=== PATIENT | female | born 1970 | race African-American/Black ===

== ENCOUNTER 2017-05-18 19:54 | Emergency (ER) | payer SELFPAY ==
[2015-11-09 22:58] VITALS: BP 135/83
[~2017-05-18] VITALS: Ht 157.5 cm; Wt 88.5 kg
--- NOTE | 2017-05-18 21:22 | PHYS DOC ---
Past Medical History Past Medical History: No Pertinent History, Other Additional Past Medical Histor: tubal 1990 Past Surgical History: Other Additional Past Surgical Histo: Hernia Alcohol Use: None Drug Use: None Adult General Chief Complaint Chief Complaint: SORE THROAT [facility] HPI Patient is a 46 year old female with no significant medical history who presents with a sore throat, bilateral ear pain and a cough that began 4 days ago. Patient is also complaining of right eye redness and crusting that she noted 3 days ago when she woke up. Patient denies any vision loss. Patient denies any fever. Review of Systems Review of Systems Constitutional: see HPI Eyes: right eye redness HENT: eye pain bilaterally and sore throat [] Respiratory cough Cardiovascular: No additional information not addressed in HPI [] GI: Denies abdominal pain, nausea, vomiting, bloody stools or diarrhea [] : Denies dysuria or hematuria [] Musculoskeletal: Denies back pain or joint pain [] Integument: Denies rash or skin lesions [] Neurologic: Denies headache, focal weakness or sensory changes [] Endocrine: Denies polyuria or polydipsia [] Allergies Allergies Allergies Coded Allergies Type Severity Reaction Last Updated Verified No Known Drug Allergies 12/25/14 No Physical Exam Physical Exam Constitutional: Well developed, well nourished, no acute distress, non-toxic appearance. [] HENT: Normocephalic, atraumatic, bilateral external ears normal, oropharynx moist, no oral exudates, nose normal. [] Bilateral TM are mildly injected. Eyes: PERRLA, EOMI, mild injection to the right conjunctiva with trace crusty material Neck: Normal range of motion, no tenderness, supple, no stridor. [] Cardiovascular:Heart rate regular rhythm, no murmur [] Lungs & Thorax: Bilateral breath sounds clear to auscultation [] Abdomen: Bowel sounds normal, soft, no tenderness, no masses, no pulsatile masses. [] Skin: Warm, dry, no erythema, no rash. [] Back: No tenderness, no CVA tenderness. [] Extremities: No tenderness, no cyanosis, no clubbing, ROM intact, no edema. [] Neurologic: Alert and oriented X 3, normal motor function, normal sensory function, no focal deficits noted. [] Psychologic: Affect normal, judgement normal, mood normal. [] Current Patient Data Vital Signs Vital Signs Date Time Temp Pulse Resp B/P (MAP) Pulse Ox O2 Delivery O2 Flow Rate FiO2 05/18/17 20:08 98.8 94 18 97 Room Air 98.8 EKG EKG [] Radiology/Procedures Radiology/Procedures [] Course & Med Decision Making Course & Med Decision Making Pertinent Labs and Imaging studies reviewed. (See chart for details) Patient has otitis media bilaterally, cough, pharyngitis, and right eye bacterial conjunctivitis. Discharged with amoxicillin for 10 days and tobramycin. Tylenol Motrin for pain or fever. Saltwater gargles recommended. Follow-up with PCP in 1-2 weeks. Dragon Disclaimer Dragon Disclaimer This electronic medical record was generated, in whole or in part, using a voice recognition dictation system. Departure Departure Impression: Primary Impression: Pharyngitis, acute Additional Impressions: Otitis media Cough Bacterial conjunctivitis of right eye Disposition: HOME, SELF-CARE Condition: STABLE Referrals: MAGALY CABRERA (PCP) Follow-up with your doctor in 1-2 weeks Patient Instructions: Bacterial Conjunctivitis, [id number], Cough, Adult, [id number], Otitis Media, Adult, Viral and Bacterial Pharyngitis Additional Instructions: You were seen for otitis media, pharyngitis, cough, and bacterial conjunctivitis to the right eye. Please complete your oral antibiotics. Use the prescribed eye drops as ordered. Keep your hands clean. Follow-up with your doctor in the next 7 days. Do not wear contact lenses until the infection has cleared up. Scripts Benzonatate (TESSALON PERLE) 100 Mg Capsule 1 CAP PO TID, #30 CAP Prov: JAHAIRA BELL APRN 05/18/17 Tramadol Hcl (ULTRAM) 50 Mg Tablet 1 TAB PO Q6HRS, #30 TAB Prov: JAHAIRA BELL APRN 05/18/17 Tobramycin (TOBRAMYCIN) 5 Ml Drops 1 DROP OD Q4HRS W/A, #5 ML Prov: JAHAIRA BELL APRN 05/18/17 Amoxicillin (AMOXICILLIN) 875 Mg Tablet 1 TAB PO BID, #20 TAB Prov: JAHAIRA BELL APRN 05/18/17 Problem Qualifiers Primary Impression: Pharyngitis, acute Pharyngitis/tonsillitis etiology: unspecified etiology Qualified Codes: J02.9 - Acute pharyngitis, unspecified Additional Impressions: Otitis media Otitis media type: other nonsuppurative Chronicity: acute Laterality: bilateral Recurrence: not specified as recurrent Qualified Codes: H65.193 - Other acute nonsuppurative otitis media, bilateral HENRYANITAJAHAIRA [employer]OR May 18, 2017 21:22
[2017-05-18] MEDS ORDERED: TOBR5DRO6 OD (21:27)
[2017-05-18] MEDS ORDERED: TRAM-48 PO (21:27)
[2017-05-18] MEDS ORDERED: AMOX875T PO (21:27)
[2017-05-18] MEDS ORDERED: BENZ100C PO (21:27)
[2017-05-19 08:35] LABS: NEGATIVE OBC STREP NEG; POSITIVE OBC STREP POS
== END 2017-05-18 21:31 | disposition home or self-care (01) ==
LOC: ER 19:54
DX: J02.9 Acute pharyngitis, unspecified (principal); H65.193 Other acute nonsuppurative otitis media, bilateral; H10.89 Other conjunctivitis
CPT/HCPCS: 87070; 87880; 99283

== ENCOUNTER 2017-11-01 16:25 | Emergency (ER) | payer SELFPAY ==
[2017-11-01 16:48] LABS: ADD MAN DIFF? NO
[2017-11-01 16:49] LABS: BASO # 0.1 x10^3/uL (0.0-0.2); BASO % 1 % (0-3); EOS # 0.1 x10^3/uL (0.0-0.7); EOS % 1 % (0-3); HEMATOCRIT 37.2 % (36.0-47.0); HEMOGLOBIN 12.1 g/dL (12.0-15.5); LYMPH % 29 % (24-48); MEAN CORPUSCULAR HEMOGLOBIN 27 pg (25-35); MEAN CORPUSCULAR HGB CONC 33 g/dL (31-37); MEAN CORPUSCULAR VOLUME 83 fL (79-100); MONO # 0.4 x10^3/uL (0.0-1.1); MONO % 4 % (0-9); NEUT # 6.8 x10^3uL (1.8-7.7); NEUT % 66 % (31-73); PLATELET COUNT 436 x10^3/uL (140-400); RED BLOOD COUNT 4.49 x10^6/uL (3.50-5.40); RED CELL DISTRIBUTION WIDTH 14.7 % (11.5-14.5); WHITE BLOOD COUNT 10.3 x10^3/uL (4.0-11.0)
[2017-11-01 17:07] LABS: ANION GAP 12 (6-14); BLOOD UREA NITROGEN 10 mg/dL (7-20); CALCIUM 8.8 mg/dL (8.5-10.1); CARBON DIOXIDE 26 mmol/L (21-32); CHLORIDE 103 mmol/L (98-107); CREATININE 0.8 mg/dL (0.6-1.0); GFR 92.2; GLUCOSE 92 mg/dL (70-99); POTASSIUM 3.4 mmol/L (3.5-5.1); SODIUM 141 mmol/L (136-145)
[2017-11-01 17:27] LABS: TROPONINI < 0.017 ng/mL (0.000-0.055)
== END 2017-11-01 20:05 | disposition home or self-care (01) ==
LOC: ER 16:25
DX: R60.1 Generalized edema (principal); R07.89 Other chest pain
CPT/HCPCS: 36415; 80048; 84484; 85025; 93005; 93971; 99285-25

== ENCOUNTER 2020-05-12 12:41 | Emergency (ER) | payer SELFPAY ==
[~2020-05-12] VITALS: Ht 160 cm; Wt 86.3 kg
[~2020-05-12 12:41] MED LIST: AMOX875T PO; BENZ100C PO; NAPR-695 PO; TOBR5DRO6 OD; TRAM-48 PO
[2020-05-12 13:00] VITALS: BP 159/107
--- NOTE | 2020-05-12 14:26 | PHYS DOC ---
Past Medical History Past Medical History: No Pertinent History Additional Past Medical Histor: tubal 1990 (TETE CABALLERO APRN) Past Surgical History: Other Additional Past Surgical Histo: Hernia (TETE CABALLERO APRN) Smoking Status: Current Every Day Smoker Additional Information: 0.25/ppd Alcohol Use: None Drug Use: None (TETE CABALLERO APRN) General Adult EDM: Chief Complaint: UPPER EXTREMITY PAIN HPI: HPI: Patient is a 49 year old female who presents with complaints of left shoulder area muscle stiffness that started approximately 1 week ago. Patient states she believes it may have been related to having her hair rakan put in and sleeping funny that night. Patient denies any acute injury or straining her neck or arm related to this current complaint. Patient rates her pain a 10 out of 10 when it is at its worse. Patient states when she moves left her arm doing normal things throughout the day the pain becomes worse and feels as if it is burning from the side of her left neck through her left shoulder and down the back of her left arm. Patient states she gets relief with taken Vicodin and Naprosyn at home. Patient states these medications were old medications left over from previous doctor visits. Patient states her pain is currently a 4/10, after taking a 375 mg naproxen tablet and a one half 10 mg Vicodin tablet just prior to arrival today. Patient denies fever chills vision changes, nasal congestion sore throat or cough, chest pain, or swelling of her extremities. Patient denies any abdominal pain, nausea, vomiting, blood in her stool. Denies problems urinating or having bowel movements. Patient denies rash, headaches, focal weaknesses, or sensory changes. Patient denies any swollen glands, or depressions or anxieties. Patient denies any problems related to diabetes such as increased thirst or increased urination. Patient denies anyone else living in her home with the same symptoms. Patient states she drove here today and is not looking to be treated with medications in the emergency department, just wants to obtain some prescriptions and go back home. (TETE CABALLERO APRN) Review of Systems: Review of Systems: Constitutional: Denies fever or chills. Eyes: Denies change in visual acuity. HENT: Denies nasal congestion or sore throat. Respiratory: Denies cough or shortness of breath. Cardiovascular: Denies chest pain or edema. GI: Denies abdominal pain, nausea, vomiting, bloody stools or diarrhea. : Denies dysuria. Musculoskeletal: Denies back pain , complains of left side of neck, left shoulder, back of left arm pain that increases with movement throughout the day. Integument: Denies rash. Neurologic: Denies headache, focal weakness or sensory changes. Endocrine: Denies polyuria or polydipsia. Lymphatic: Denies swollen glands. Psychiatric: Denies depression or anxiety. (TETE CABALLERO APRN) Heart Score: Risk Factors: Risk Factors: DM, Current or recent (<one month) smoker, HTN, HLP, family history of CAD, obesity. Risk Scores: Score 0 - 3: 2.5% MACE over next 6 weeks - Discharge Home Score 4 - 6: 20.3% MACE over next 6 weeks - Admit for Clinical Observation Score 7 - 10: 72.7% MACE over next 6 weeks - Early Invasive Strategies (TETE CABALLERO APRN) Family History: Family History: Patient denies any family history related to this visit. (TETE CABALLERO APRN) Current Medications: Patient denies being on any current medications at home. (TETE CABALLERO APRN) Allergies: Allergies: Allergies Coded Allergies Type Severity Reaction Last Updated Verified No Known Drug Allergies 12/25/14 No (TETE CABALLERO APRN) Physical Exam: PE: Constitutional: Well developed, well nourished, no acute distress, non-toxic appearance. HENT: Normocephalic, atraumatic, bilateral external ears normal, oropharynx moist, no oral exudates, nose normal. Eyes: PERRLA, EOMI, conjunctiva normal, no discharge. Pupils 5 mm. Neck: Normal range of motion, tenderness to the left lateral muscular structures, supple, no stridor. Cardiovascular:Heart rate regular rhythm, no murmur heart sounds S1-S2, no abnormalities noted per auscultation Lungs & Thorax: Bilateral breath sounds clear to auscultation all lung ervin. Abdomen: Bowel sounds normal all 4 quadrants, soft, no tenderness, no masses, no pulsatile masses. Skin: Warm, dry, no erythema, no rash. Back: No tenderness, no CVA tenderness. Extremities: Tenderness to palpation left trapezius, left shoulder, and left triceps area, otherwise all other extremities without pain or discomfort, no cyanosis, no clubbing, ROM intact, no edema. Neurologic: Alert and oriented X 3, normal motor function, normal sensory function, no focal deficits noted. Psychologic: Affect normal, judgement normal, mood normal. (TETE CABALLERO APRN) Current Patient Data: Vital Signs: Vital Signs Date Time Temp Pulse Resp B/P (MAP) Pulse Ox O2 Delivery O2 Flow Rate FiO2 05/12/20 13:00 98.7 83 18 159/107 (124) 99 Room Air 98.7 (TETE CABALLERO APRN) EKG: EKG: [] (TETE CABALLERO APRN) Radiology/Procedures: Radiology/Procedures: [] (TETE CABALLERO APRN) Course & Med Decision Making: Course & Med Decision Making Pertinent Labs and Imaging studies reviewed. (See chart for details) 49-year-old female patient arrives to the emergency department today complaining of left-sided neck and shoulder and arm pain for the past week. Patient attrib utes this pain to having her hair put in rakan and a bun a week ago and then sleeping funny on her neck. Patient denies any injury. Patient rates her pain at a 10 out of 10 at its worse. Patient states she gets relief with taking Naprosyn and Vicodin. Patient states she had some old prescriptions left over of Naprosyn and Vicodin which she took prior to arrival which brought her pain down to a 4/10. Patient was in no acute disc distress during examination. Full PROM/AROM of left upper extremity. No deformity, swelling, crepitus noted during exam. During palpation of muscular structures of the left side of neck trapezius area shoulder and left triceps area, patient complained of pain. 20 this presentation is most likely muscle strain, and does not suggest an infectious process. Discussed with patient using Naprosyn and a muscle relaxer such as Flexeril at home to relieve pain. Discussed with patient precautions of using muscle relaxers and driving or using heavy machinery along with safety precautions. Discussed with patient need to see her primary physician for reevaluation of this pain if it does not resolve soon with the medications prescribed for the emergency department. Patient was amenable to discharge instructions, return to ER concerns, and has no further questions or concerns. (TETE CABALLERO APRN) Dragon Disclaimer: Dragon Disclaimer: This electronic medical record was generated, in whole or in part, using a voice recognition dictation system. (TETE CABALLERO APRN) Departure Departure Impression: Primary Impression: Shoulder strain Qualified Codes: S46.912A - Strain of unspecified muscle, fascia and tendon at shoulder and upper arm level, left arm, initial encounter Additional Impressions: Shoulder pain, left Qualified Codes: M25.512 - Pain in left shoulder Neck and shoulder pain Disposition: HOME, SELF-CARE Condition: GOOD Referrals: MAGALY CABRERA (PCP) Patient Instructions: Cervical Sprain, Shoulder Pain Additional Instructions: Take all medications as prescribed, follow-up with your doctor soon if symptoms do not resolve. Please return to the emergency department for any further concerns. Scripts Tramadol Hcl (TRAMADOL HCL) 50 Mg Tablet 50 MG PO Q6HRS PRN for PAIN, #10 TAB 0 Refills Prov: TETE CABALLERO APRN 05/12/20 Cyclobenzaprine Hcl (CYCLOBENZAPRINE HCL) 10 Mg Tablet 10 MG PO TID, #15 TAB 0 Refills Prov: TETE CABALLERO APRN 05/12/20 Naproxen (NAPROSYN) 500 Mg Tablet 500 MG PO BID, #14 TAB 0 Refills Prov: TETE CABALLERO APRN 05/12/20 Justicifation of Admission Dx: Justifications for Admission: Justification of Admission Dx: N/A (TETE CABALLERO APRN) Attending Signature Attending Signature I have reviewed the PA/[employer]'s note and plan of care. I was available for consultation as needed during the patient's visit in the emergency department. I agree with the clinical impression, plan, and disposition. (TETE ESPINOSA DO) TETE CABALLERO APRN May 12, 2020 14:26 TETE ESPINOSA DO May 13, 2020 06:34
[2020-05-12] MEDS ORDERED: NAPR-683 PO (14:45)
[2020-05-12] MEDS ORDERED: CYCL10TA2 PO (14:45)
[2020-05-12] MEDS ORDERED: TRAM50TA PO (14:45)
== END 2020-05-12 14:53 | disposition home or self-care (01) ==
LOC: ER 12:41
DX: S46.912A Strain of unspecified muscle, fascia and tendon at shoulder and upper arm level, left arm, initial encounter (principal); M54.2 Cervicalgia; M79.602 Pain in left arm; F17.200 Nicotine dependence, unspecified, uncomplicated; X50.9XXA Other and unspecified overexertion or strenuous movements or postures, initial encounter; Y93.89 Activity, other specified; Y92.89 Other specified places as the place of occurrence of the external cause; Y99.8 Other external cause status
CPT/HCPCS: 99283